=== PATIENT | female | born 1955 | race Hispanic/Latino ===

== ENCOUNTER → 2020-05-11 | Outpatient (CLI) | payer BC ==
[2020-05-11 10:09] LABS: BASOPHILS # (AUTO) 0.1 (0.0-0.1); BASOPHILS % 0.6 % (0.0-1.0); EOSINOPHILS # (AUTO) 0.6 (0.0-0.4); EOSINOPHILS % 7.4 % (0.0-6.0); HEMATOCRIT 40.8 % (34.2-44.1); HEMOGLOBIN 13.3 g/dL (12.0-16.0); LYMPHOCYTES # (AUTO) 2.3 (1.0-3.2); LYMPHOCYTES % 27.7 % (18.0-39.1); MEAN CORPUSCULAR HEMOGLOBIN 28.6 pg (28-32); MEAN CORPUSCULAR HGB CONC 32.6 g/dL (31-35); MEAN CORPUSCULAR VOLUME 87.7 fL (81-99); MONOCYTES # (AUTO) 0.6 (0.2-0.8); MONOCYTES % 6.9 % (4.4-11.3); NEUTROPHILS # (AUTO) 4.7 (2.1-6.9); PLATELET COUNT 141 x10e3/uL (140-360); RED BLOOD COUNT 4.65 x10e6/uL (3.6-5.1); RED CELL DISTRIBUTION WIDTH 13.2 % (11.7-14.4)
[2020-05-11 10:29] LABS: ALBUMIN 3.4 g/dL (3.5-5.0); ALBUMIN/GLOBULIN RATIO 0.9 (0.8-2.0); CALCIUM 9.2 mg/dL (8.4-10.2); CREATININE, SERUM 0.99 mg/dL (0.57-1.11)
== END ==
LOC: LAB 09:31
PROVIDERS: ATTEND Internal Medicine
DX: R07.9 Chest pain, unspecified (principal); R06.02 Shortness of breath; R53.83 Other fatigue
CPT/HCPCS: 36415; 80053; 85025; 85379

== ENCOUNTER → 2020-05-12 | Outpatient (CLI) | payer BC ==
[~2020-05-12] MED LIST: IOPAMIDOL 370 MG/ML 200 ML INFUS..BTL INJ ONE; SODIUM CHLORIDE 0.9% 100 ML ONE; SODIUM CHLORIDE 0.9% 250ML 250 ML ONE; SODIUM CHLORIDE 0.9% 500ML 500 ML ONE; SODIUM CHLORIDE 0.9% 50ML 0 ML ONE
== END ==
LOC: CT 10:47
PROVIDERS: ATTEND Internal Medicine
DX: R06.02 Shortness of breath (principal)
CPT/HCPCS: 71260; J7040; J7050 ×2; Q9967

== ENCOUNTER 2023-09-03 08:00 | Inpatient (IN) | payer BC, OTHER ==
[2023-09-02 12:53] LABS: BASOPHILS % 0.6 % (0.0-1.0); EOSINOPHILS # (AUTO) 0.3 (0.0-0.4); EOSINOPHILS % 4.1 % (0.0-6.0); HEMATOCRIT 41.4 % (34.2-44.1); LYMPHOCYTES # (AUTO) 1.6 (1.0-3.2); LYMPHOCYTES % 21.9 % (18.0-39.1); MEAN CORPUSCULAR HEMOGLOBIN 27.7 pg (28-32); MEAN CORPUSCULAR HGB CONC 31.4 g/dL (31-35); MEAN CORPUSCULAR VOLUME 88.1 fL (81-99); MONOCYTES # (AUTO) 0.6 (0.2-0.8); MONOCYTES % 8.7 % (4.4-11.3); NEUTROPHILS # (AUTO) 4.7 (2.1-6.9); NEUTROPHILS % 64.4 % (38.7-80.0); PLATELET COUNT 143 x10e3/uL (140-360); RED CELL DISTRIBUTION WIDTH 13.5 % (11.7-14.4); WHITE BLOOD COUNT 7.27 x10e3/uL (4.8-10.8)
[2023-09-02 13:29] LABS: ALBUMIN 3.7 g/dL (3.5-5.0); ALBUMIN/GLOBULIN RATIO 0.9 (0.8-2.0); ANION GAP 16.3 mmol/L (8-16); BILIRUBIN,TOTAL 0.6 mg/dL (0.2-1.2); CALCIUM 9.1 mg/dL (8.4-10.2); CREATININE, SERUM 0.88 mg/dL (0.57-1.11); POTASSIUM 4.3 mmol/L (3.5-5.1); TOTAL PROTEIN 7.6 g/dL (6.5-8.1)
[~2023-09-03] VITALS: Ht 149.9 cm; Wt 112.5 kg
[2023-09-03] VITALS (21 sets, daily range): BP systolic 121–151; BP diastolic 48–66; PULSE 95–111; RESP 8–18; TEMP 97.3–98.2; O2SAT 90–100
[~2023-09-03 08:00] MED LIST changes: +ALEVE220 M1 PO; +GLIMEPIRIDE2 MG PO; +HUMALOG100 UNIT/1 SC; -IOPAMIDOL 370 MG/ML 200 ML INFUS..BTL INJ ONE; +LISINOPRIL5 MG PO; +OZEMPIC0.25 MG/02 SC; -SODIUM CHLORIDE 0.9% 100 ML ONE; -SODIUM CHLORIDE 0.9% 250ML 250 ML ONE; -SODIUM CHLORIDE 0.9% 500ML 500 ML ONE; -SODIUM CHLORIDE 0.9% 50ML 0 ML ONE; +Sodium Chloride 0.9% 50ML Bag ONE; +TOLTERODINE TART2 MG PO; +TRELEGY ELLIPT1 EACH INH; +humalog SC
[2023-09-03] MEDS: LACTATED RINGER'S 1,000 ML ONE (08:47)
[2023-09-03] MEDS: CEFAZOLIN SODIUM 2 GM ONE (08:47)
[2023-09-03] MEDS ORDERED: MORPHINE SULFATE/PF 1 MG/1 ML 10ML VIAL ONE (11:28)
[2023-09-03] MEDS ORDERED: FENTANYL CITRATE/PF 100MCG/2 ML INJ ONE (11:44)
[2023-09-03] MEDS ORDERED: OXYMETAZOLINE HCL 0.05% NAS 1 SPRAY BTL ONE (12:44)
[2023-09-03] MEDS ORDERED: SUCCINYLCHOLINE CHLORIDE 20 MG/ML 10ML VIAL ONE (12:46)
[2023-09-03] MEDS ORDERED: DEXAMETHASONE SOD PHOS INJ 4 MG/ML SDV ONE (12:46)
[2023-09-03] MEDS ORDERED: PHENYLEPHRINE HCL 1% 10 MG/ML VIAL ONE (12:46)
[2023-09-03] MEDS ORDERED: PROPOFOL IV EMULSION 10 MG/ML 20 ML VIAL ONE (12:46)
[2023-09-03] MEDS ORDERED: SUGAMMADEX SODIUM 200 MG/2 ML VIAL IV ONE (12:46)
[2023-09-03] MEDS ORDERED: ONDANSETRON HCL INJ 2MG/ML 2ML 2 MG/ML VIAL ONE (12:46)
[2023-09-03] MEDS ORDERED: LIDOCAINE HCL 2% LOCAL INJ 5 ML SDV VIAL INJ ONE (12:46)
[2023-09-03] MEDS ORDERED: ROCURONIUM BROMIDE 10 MG/ML 5ML VIAL IV ONE (12:46)
[2023-09-03] MEDS ORDERED: HYDRALAZINE HCL 20 MG/ML VIAL ONE (12:46)
[2023-09-03] MEDS ORDERED: FAMOTIDINE 20 MG/2 ML VIAL IV ONE (12:46)
[2023-09-03] MEDS ORDERED: ALBUMIN 25% 12.5GM 0.25 GM/ML BTL IV ONE (12:46)
[2023-09-03] MEDS ORDERED: EPINEPHRINE HCL 1:1000 1ML 1 MG/ML AMP ONE (12:46)
[2023-09-03] MEDS ORDERED: EPHEDRINE SULFATE INJ 50 MG/ML VIAL ONE (12:46)
[2023-09-03] MEDS ORDERED: ALBUMIN 25% 12.5GM 50ML 100 ML IV ONE (14:16)
[2023-09-03] MEDS ORDERED: ACETAMINOPHEN 1000 MG/100 ML IV PRN (14:45)
[2023-09-03] MEDS ORDERED: NALOXONE HCL INJ 0.4 MG/ML AMP IV PRN (14:45)
[2023-09-03] MEDS: MORPHINE SULFATE 1 MG/ML 30ML PCA IV PRN (15:28)
[2023-09-03 15:47] LABS: BASOPHILS # (AUTO) 0.1 (0.0-0.1); BASOPHILS % 0.4 % (0.0-1.0); EOSINOPHILS # (AUTO) 0.1 (0.0-0.4); EOSINOPHILS % 0.6 % (0.0-6.0); HEMATOCRIT 36.1 % (34.2-44.1); HEMOGLOBIN 11.5 g/dL (12.0-16.0); LYMPHOCYTES # (AUTO) 2.1 (1.0-3.2); LYMPHOCYTES % 13.3 % (18.0-39.1); MEAN CORPUSCULAR HEMOGLOBIN 28.5 pg (28-32); MEAN CORPUSCULAR HGB CONC 31.9 g/dL (31-35); MEAN CORPUSCULAR VOLUME 89.4 fL (81-99); MONOCYTES # (AUTO) 0.5 (0.2-0.8); MONOCYTES % 2.8 % (4.4-11.3); NEUTROPHILS # (AUTO) 13.2 (2.1-6.9); NEUTROPHILS % 82.6 % (38.7-80.0); PLATELET COUNT 180 x10e3/uL (140-360); RED BLOOD COUNT 4.04 x10e6/uL (3.6-5.1); RED CELL DISTRIBUTION WIDTH 13.8 % (11.7-14.4); WHITE BLOOD COUNT 15.92 x10e3/uL (4.8-10.8)
[2023-09-03 15:58] LABS: ANION GAP 15.5 mmol/L (8-16); CALCIUM 7.7 mg/dL (8.4-10.2); CREATININE, SERUM 1.11 mg/dL (0.57-1.11); POTASSIUM 4.5 mmol/L (3.5-5.1)
[2023-09-03] MEDS ORDERED: DEXTROSE 50% SYRINGE 50 ML IV PRN (17:15)
[2023-09-03] MEDS: SODIUM CHLORIDE 0.9% 250ML IRRIG IR SCH (17:23)
[2023-09-03] MEDS: INSULIN LISPRO 100 UNIT/1 ML 3ML VIAL SQ SCH (17:37)
[2023-09-03] MEDS: MUPIROCIN 2% OINT 22 GM TUBE TOP SCH (17:37)
[2023-09-03] MEDS: SODIUM CHLORIDE 0.9% 1000ML 1,000 ML IV SCH (17:37)
[2023-09-04] VITALS (30 sets, daily range): BP systolic 92–150; BP diastolic 50–86; PULSE 87–101; RESP 10–18; TEMP 97–98; O2SAT 90–100
[2023-09-04 06:18] LABS: BASOPHILS % 0.1 % (0.0-1.0); HEMATOCRIT 32.3 % (34.2-44.1); HEMOGLOBIN 9.3 g/dL (12.0-16.0); LYMPHOCYTES # (AUTO) 0.4 (1.0-3.2); LYMPHOCYTES % 4.2 % (18.0-39.1); MEAN CORPUSCULAR HEMOGLOBIN 27.8 pg (28-32); MEAN CORPUSCULAR HGB CONC 28.8 g/dL (31-35); MEAN CORPUSCULAR VOLUME 96.4 fL (81-99); MONOCYTES # (AUTO) 0.8 (0.2-0.8); MONOCYTES % 8.7 % (4.4-11.3); NEUTROPHILS # (AUTO) 7.5 (2.1-6.9); NEUTROPHILS % 86.7 % (38.7-80.0); RED BLOOD COUNT 3.35 x10e6/uL (3.6-5.1); RED CELL DISTRIBUTION WIDTH 13.8 % (11.7-14.4); WHITE BLOOD COUNT 8.63 x10e3/uL (4.8-10.8)
[2023-09-04 06:38] LABS: PLATELET COUNT 91 x10e3/uL (140-360)
[2023-09-04] MEDS: ONDANSETRON HCL INJ 2MG/ML 2ML 2 MG/ML VIAL IV PRN (07:33)
[2023-09-04 07:45] LABS: ALBUMIN 3.3 g/dL (3.5-5.0); BILIRUBIN,TOTAL 0.3 mg/dL (0.2-1.2); CALCIUM 7.6 mg/dL (8.4-10.2); CREATININE, SERUM 2.14 mg/dL (0.57-1.11); TOTAL PROTEIN 6.6 g/dL (6.5-8.1)
[2023-09-04 08:59] LABS: ANION GAP 16.4 mmol/L (8-16); POTASSIUM 5.4 mmol/L (3.5-5.1)
[2023-09-04] MEDS: DIPHENHYDRAMINE HCL INJ 50 MG/ML VIAL IM PRN (10:48)
[2023-09-05] VITALS (27 sets, daily range): BP systolic 112–170; BP diastolic 43–75; PULSE 74–96; RESP 11–25; TEMP 98.6–99.8; O2SAT 88–99
[2023-09-05] MEDS: ACETAMINOPHEN 1000 MG/100 ML IV STA (03:12)
[2023-09-05] MEDS: ACETAMINOPHEN 1000 MG/100 ML 100 ML IV ONE (05:04)
[2023-09-05] MEDS: ACETAMINOPHEN 1000 MG/100 ML IV PRN (07:58)
[2023-09-05 08:35] LABS: BASOPHILS % 0.2 % (0.0-1.0); HEMATOCRIT 31.1 % (34.2-44.1); HEMOGLOBIN 9.8 g/dL (12.0-16.0); LYMPHOCYTES # (AUTO) 0.7 (1.0-3.2); LYMPHOCYTES % 7.5 % (18.0-39.1); MEAN CORPUSCULAR HEMOGLOBIN 28.7 pg (28-32); MEAN CORPUSCULAR HGB CONC 31.5 g/dL (31-35); MEAN CORPUSCULAR VOLUME 90.9 fL (81-99); MONOCYTES # (AUTO) 0.8 (0.2-0.8); MONOCYTES % 8.4 % (4.4-11.3); NEUTROPHILS # (AUTO) 7.5 (2.1-6.9); NEUTROPHILS % 83.3 % (38.7-80.0); PLATELET COUNT 76 x10e3/uL (140-360); RED BLOOD COUNT 3.42 x10e6/uL (3.6-5.1); RED CELL DISTRIBUTION WIDTH 14.6 % (11.7-14.4); WHITE BLOOD COUNT 9.04 x10e3/uL (4.8-10.8)
[2023-09-05 08:57] LABS: ALBUMIN 2.9 g/dL (3.5-5.0); ALBUMIN/GLOBULIN RATIO 0.9 (0.8-2.0); ANION GAP 14.9 mmol/L (8-16); BILIRUBIN,TOTAL 0.3 mg/dL (0.2-1.2); CALCIUM 7.5 mg/dL (8.4-10.2); CREATININE, SERUM 2.67 mg/dL (0.57-1.11); POTASSIUM 4.9 mmol/L (3.5-5.1)
[2023-09-05] MEDS: PROMETHAZINE 12.5MG/ NACL 0.9% 12.5 MG/50 ML BAG IV PRN (12:27)
[2023-09-05] MEDS: SODIUM BICARBONATE 8.4% VIAL 50 ML in SODIUM CHLORIDE 0.45% 1,000 ML IV SCH (12:27)
[2023-09-05] MEDS: HYDROMORPHONE 1MG/1ML INJ IV PRN (19:15)
[2023-09-05] MEDS: BISACODYL 10 MG SUPP PR ONE (21:08)
[2023-09-06] VITALS (17 sets, daily range): BP systolic 115–156; BP diastolic 52–90; PULSE 84–97; RESP 8–22; TEMP 97.5–98.2; O2SAT 93–100
[2023-09-06 06:38] LABS: BASOPHILS % 0.4 % (0.0-1.0); EOSINOPHILS # (AUTO) 0.1 (0.0-0.4); EOSINOPHILS % 1.4 % (0.0-6.0); HEMATOCRIT 31.4 % (34.2-44.1); HEMOGLOBIN 9.3 g/dL (12.0-16.0); LYMPHOCYTES # (AUTO) 0.8 (1.0-3.2); LYMPHOCYTES % 9.4 % (18.0-39.1); MEAN CORPUSCULAR HEMOGLOBIN 27.8 pg (28-32); MEAN CORPUSCULAR HGB CONC 29.6 g/dL (31-35); MEAN CORPUSCULAR VOLUME 93.7 fL (81-99); MONOCYTES # (AUTO) 0.6 (0.2-0.8); MONOCYTES % 7.1 % (4.4-11.3); NEUTROPHILS # (AUTO) 6.5 (2.1-6.9); NEUTROPHILS % 81.2 % (38.7-80.0); PLATELET COUNT 81 x10e3/uL (140-360); RED BLOOD COUNT 3.35 x10e6/uL (3.6-5.1); RED CELL DISTRIBUTION WIDTH 14.1 % (11.7-14.4); WHITE BLOOD COUNT 8.01 x10e3/uL (4.8-10.8)
[2023-09-06 06:59] LABS: ANION GAP 13.8 mmol/L (8-16); CALCIUM 7.8 mg/dL (8.4-10.2); CREATININE, SERUM 2.27 mg/dL (0.57-1.11); POTASSIUM 4.8 mmol/L (3.5-5.1)
[2023-09-06] MEDS: ACETAMINOPHEN 1000 MG/100 ML IV PRN (10:39)
[2023-09-06] MEDS: BISACODYL 10 MG SUPP PR PRN (13:46)
[2023-09-06] MEDS: SODIUM CHLORIDE 0.9% 1000ML 1,000 ML IV SCH (17:07)
[2023-09-07 07:05] LABS: CALCIUM 8.3 mg/dL (8.4-10.2); CREATININE, SERUM 1.92 mg/dL (0.57-1.11)
[2023-09-07 07:06] LABS: BASOPHILS % 0.4 % (0.0-1.0); EOSINOPHILS # (AUTO) 0.1 (0.0-0.4); EOSINOPHILS % 1.5 % (0.0-6.0); HEMATOCRIT 32.9 % (34.2-44.1); HEMOGLOBIN 9.8 g/dL (12.0-16.0); LYMPHOCYTES # (AUTO) 0.9 (1.0-3.2); LYMPHOCYTES % 12.2 % (18.0-39.1); MEAN CORPUSCULAR HEMOGLOBIN 28.4 pg (28-32); MEAN CORPUSCULAR HGB CONC 29.8 g/dL (31-35); MEAN CORPUSCULAR VOLUME 95.4 fL (81-99); MONOCYTES # (AUTO) 0.5 (0.2-0.8); MONOCYTES % 7.6 % (4.4-11.3); NEUTROPHILS # (AUTO) 5.6 (2.1-6.9); PLATELET COUNT 90 x10e3/uL (140-360); RED BLOOD COUNT 3.45 x10e6/uL (3.6-5.1); RED CELL DISTRIBUTION WIDTH 13.8 % (11.7-14.4); WHITE BLOOD COUNT 7.12 x10e3/uL (4.8-10.8)
[2023-09-07 08:43] VITALS: BP 148/67; PULSE 82; RESP 16; TEMP 98; O2SAT 98
[2023-09-07 08:58] VITALS: BP 148/67; PULSE 82; RESP 16; TEMP 98; O2SAT 98
[2023-09-07] MEDS: SENNA-S TABLET PO SCH (15:39)
[2023-09-07 16:30] VITALS: BP 162/72; PULSE 96; RESP 20; TEMP 98.1; O2SAT 97
[2023-09-07] MEDS: ACETAMINOPHEN/CODEINE 300MG - 30MG TAB PO PRN (16:42)
[2023-09-07] MEDS: CEFUROXIME AXETIL 250 MG TAB PO SCH (16:42)
[2023-09-07 20:00] VITALS: BP 158/76; PULSE 70; RESP 20; TEMP 98.1; O2SAT 97
[2023-09-07 21:00] VITALS: BP 158/76; PULSE 97; RESP 20; TEMP 98.7; O2SAT 97
[2023-09-08] VITALS (7 sets, daily range): BP systolic 125–165; BP diastolic 54–64; PULSE 64–70; RESP 15–18; TEMP 97.1–98.7; O2SAT 96–98
[2023-09-08 05:56] LABS: BASOPHILS % 0.6 % (0.0-1.0); EOSINOPHILS # (AUTO) 0.5 (0.0-0.4); EOSINOPHILS % 6.5 % (0.0-6.0); HEMATOCRIT 31.3 % (34.2-44.1); HEMOGLOBIN 9.8 g/dL (12.0-16.0); LYMPHOCYTES # (AUTO) 1.2 (1.0-3.2); LYMPHOCYTES % 17.9 % (18.0-39.1); MEAN CORPUSCULAR HEMOGLOBIN 28.6 pg (28-32); MEAN CORPUSCULAR HGB CONC 31.3 g/dL (31-35); MEAN CORPUSCULAR VOLUME 91.3 fL (81-99); MONOCYTES # (AUTO) 0.7 (0.2-0.8); MONOCYTES % 9.9 % (4.4-11.3); NEUTROPHILS # (AUTO) 4.5 (2.1-6.9); NEUTROPHILS % 64.8 % (38.7-80.0); PLATELET COUNT 79 x10e3/uL (140-360); RED BLOOD COUNT 3.43 x10e6/uL (3.6-5.1); RED CELL DISTRIBUTION WIDTH 13.7 % (11.7-14.4); WHITE BLOOD COUNT 6.88 x10e3/uL (4.8-10.8)
[2023-09-08 07:10] LABS: ALBUMIN 2.8 g/dL (3.5-5.0); ALBUMIN/GLOBULIN RATIO 0.8 (0.8-2.0); ALKALINE PHOSPHATASE 92 IU/L (40-150); ANION GAP 17.4 mmol/L (8-16); BILIRUBIN,TOTAL 0.7 mg/dL (0.2-1.2); BLOOD UREA NITROGEN 38 mg/dL (7-26); BUN/CREATININE RATIO 24 (6-25); CALCIUM 8.2 mg/dL (8.4-10.2); CARBON DIOXIDE 15 mmol/L (22-29); CHLORIDE 111 mmol/L (98-107); CREATININE, SERUM 1.58 mg/dL (0.57-1.11); EST GLOMERULAR FILTRATION RATE 35 ML/MIN (>=60); GLUCOSE 98 mg/dL (74-118); MAGNESIUM 1.8 MG/DL (1.3-2.1); POTASSIUM 4.4 mmol/L (3.5-5.1); SODIUM 139 mmol/L (136-145); TOTAL PROTEIN 6.1 g/dL (6.5-8.1)
[2023-09-08 07:43] LABS: ALANINE AMINOTRANSFERASE < 6 IU/L (0-55)
[2023-09-08 16:14] LABS: ANION GAP 13.4 mmol/L (8-16); CALCIUM 7.9 mg/dL (8.4-10.2); CREATININE, SERUM 1.63 mg/dL (0.57-1.11); POTASSIUM 4.4 mmol/L (3.5-5.1)
[2023-09-09] VITALS (10 sets, daily range): BP systolic 122–154; BP diastolic 53–84; PULSE 65–77; RESP 16–18; TEMP 97.3–98.5; O2SAT 97–100
[2023-09-09 05:32] LABS: BASOPHILS % 0.3 % (0.0-1.0); EOSINOPHILS # (AUTO) 0.6 (0.0-0.4); EOSINOPHILS % 8.1 % (0.0-6.0); HEMATOCRIT 32.4 % (34.2-44.1); HEMOGLOBIN 10.1 g/dL (12.0-16.0); LYMPHOCYTES # (AUTO) 1.4 (1.0-3.2); LYMPHOCYTES % 19.6 % (18.0-39.1); MEAN CORPUSCULAR HEMOGLOBIN 28.1 pg (28-32); MEAN CORPUSCULAR HGB CONC 31.2 g/dL (31-35); MONOCYTES # (AUTO) 0.7 (0.2-0.8); MONOCYTES % 9.8 % (4.4-11.3); NEUTROPHILS # (AUTO) 4.4 (2.1-6.9); NEUTROPHILS % 61.8 % (38.7-80.0); PLATELET COUNT 104 x10e3/uL (140-360); RED CELL DISTRIBUTION WIDTH 13.3 % (11.7-14.4); WHITE BLOOD COUNT 7.16 x10e3/uL (4.8-10.8)
[2023-09-09 06:09] LABS: ALBUMIN 2.6 g/dL (3.5-5.0); ALBUMIN/GLOBULIN RATIO 0.8 (0.8-2.0); ALKALINE PHOSPHATASE 93 IU/L (40-150); ANION GAP 13.4 mmol/L (8-16); BILIRUBIN,TOTAL 0.5 mg/dL (0.2-1.2); BLOOD UREA NITROGEN 33 mg/dL (7-26); BUN/CREATININE RATIO 21 (6-25); CALCIUM 8.4 mg/dL (8.4-10.2); CARBON DIOXIDE 19 mmol/L (22-29); CHLORIDE 111 mmol/L (98-107); CREATININE, SERUM 1.55 mg/dL (0.57-1.11); EST GLOMERULAR FILTRATION RATE 36 ML/MIN (>=60); GLUCOSE 146 mg/dL (74-118); POTASSIUM 4.4 mmol/L (3.5-5.1); SODIUM 139 mmol/L (136-145); TOTAL PROTEIN 5.7 g/dL (6.5-8.1)
[2023-09-09 06:40] LABS: ALANINE AMINOTRANSFERASE < 6 IU/L (0-55)
[2023-09-09] MEDS: ONDANSETRON HCL 4 MG ORAL DISINTEGRATING TAB PO PRN (17:51)
[2023-09-10] VITALS (12 sets, daily range): BP systolic 102–150; BP diastolic 64–97; PULSE 71–78; RESP 16–18; TEMP 97.5–98.7; O2SAT 93–99
[2023-09-10] MEDS: GABAPENTIN 100 MG CAP PO SCH (15:15)
[2023-09-11] VITALS: BP 148/86; PULSE 67; RESP 18; TEMP 98; O2SAT 100
[2023-09-11 04:00] VITALS: BP 136/68; PULSE 71; RESP 18; TEMP 98.5; O2SAT 97
[2023-09-11 05:38] LABS: BASOPHILS % 0.2 % (0.0-1.0); EOSINOPHILS # (AUTO) 0.6 (0.0-0.4); HEMATOCRIT 34.8 % (34.2-44.1); HEMOGLOBIN 10.7 g/dL (12.0-16.0); LYMPHOCYTES # (AUTO) 1.3 (1.0-3.2); LYMPHOCYTES % 15.4 % (18.0-39.1); MEAN CORPUSCULAR HEMOGLOBIN 27.9 pg (28-32); MEAN CORPUSCULAR HGB CONC 30.7 g/dL (31-35); MEAN CORPUSCULAR VOLUME 90.9 fL (81-99); MONOCYTES # (AUTO) 0.8 (0.2-0.8); MONOCYTES % 9.7 % (4.4-11.3); NEUTROPHILS # (AUTO) 5.8 (2.1-6.9); NEUTROPHILS % 66.5 % (38.7-80.0); PLATELET COUNT 120 x10e3/uL (140-360); RED BLOOD COUNT 3.83 x10e6/uL (3.6-5.1); RED CELL DISTRIBUTION WIDTH 13.6 % (11.7-14.4); WHITE BLOOD COUNT 8.69 x10e3/uL (4.8-10.8)
[2023-09-11 06:32] LABS: ALBUMIN 2.8 g/dL (3.5-5.0); ANION GAP 14.6 mmol/L (8-16); BILIRUBIN,TOTAL 0.5 mg/dL (0.2-1.2); CALCIUM 8.5 mg/dL (8.4-10.2); CREATININE, SERUM 1.5 mg/dL (0.57-1.11); POTASSIUM 4.6 mmol/L (3.5-5.1); TOTAL PROTEIN 5.6 g/dL (6.5-8.1)
[2023-09-11 08:00] VITALS: BP 149/77; PULSE 70; RESP 17; TEMP 98.2; O2SAT 96
[2023-09-11 08:38] VITALS: PULSE 80; RESP 18; O2SAT 94
[2023-09-11 08:50] VITALS: BP 149/77; PULSE 80; RESP 18; TEMP 98.2; O2SAT 94
[2023-09-11 12:17] VITALS: BP 130/57; PULSE 72; RESP 18; TEMP 99.4; O2SAT 99
== END 2023-09-11 15:30 | DRG 657 ==
LOC: OR 08:00 → PACU V 14:40 → ICU 16:04 → MED/SURG 09-06 15:20
PROVIDERS: ADMIT Internal Medicine; ATTEND Internal Medicine
PROC: 0TB60ZZ Excision of Right Ureter, Open Approach (ICD-10-PCS; 2023-09-03)
PROC: 0TT00ZZ Resection of Right Kidney, Open Approach (ICD-10-PCS; principal; 2023-09-03 11:31)
DX: C64.1 Malignant neoplasm of right kidney, except renal pelvis (principal); N17.9 Acute kidney failure, unspecified; Z68.43 Body mass index [BMI] 50.0-59.9, adult; N18.30 Chronic kidney disease, stage 3 unspecified; D69.6 Thrombocytopenia, unspecified; E11.22 Type 2 diabetes mellitus with diabetic chronic kidney disease; I12.9 Hypertensive chronic kidney disease with stage 1 through stage 4 chronic kidney disease, or unspecified chronic kidney disease; Z79.4 Long term (current) use of insulin; Z79.85 Long-term (current) use of injectable non-insulin antidiabetic drugs; Z79.84 Long term (current) use of oral hypoglycemic drugs; E87.5 Hyperkalemia; D64.9 Anemia, unspecified; R53.1 Weakness; E66.01 Morbid (severe) obesity due to excess calories; Z71.3 Dietary counseling and surveillance; G47.33 Obstructive sleep apnea (adult) (pediatric); D72.829 Elevated white blood cell count, unspecified; M54.30 Sciatica, unspecified side; K21.9 Gastro-esophageal reflux disease without esophagitis; M54.9 Dorsalgia, unspecified; G89.29 Other chronic pain; Z85.038 Personal history of other malignant neoplasm of large intestine; Z90.49 Acquired absence of other specified parts of digestive tract; Z79.899 Other long term (current) drug therapy
CPT/HCPCS: 36415; 71045; 71046; 74018; 80048; 80053; 82948; 83735; 85025; 86850; 86900; 86920; 88307; 88311; 93005; 94799; 99252; J0171; J0330; J0360; J0690; J1100; J1170; J1200; J2001; J2270; J2371; J2405; J2550; J7030; Q0162

== ENCOUNTER 2023-12-26 21:46 | Emergency (ER) | payer BC ==
[~2023-12-26 21:46] MED LIST changes: -Sodium Chloride 0.9% 50ML Bag ONE
== END 2023-12-27 03:00 | disposition left against medical advice (07) ==
LOC: ER 12-27 02:47
DX: R10.30 Lower abdominal pain, unspecified (principal)

== ENCOUNTER 2024-10-27 20:26 | Inpatient (IN) | payer BC, MEDICARE ==
[~2024-10-27] VITALS: Ht 149.9 cm; Wt 112.5 kg
[2024-10-27 20:50] VITALS: TEMP 98.4
[2024-10-27 21:00] LABS: BASOPHILS % 0.3 % (0.0-1.0); EOSINOPHILS % 2.0 % (0.0-6.0); LYMPHOCYTES % 14.0 % (18.0-39.1); MONOCYTES % 5.7 % (4.4-11.3); NEUTROPHILS % 77.7 % (38.7-80.0); RED CELL DISTRIBUTION WIDTH 13.4 % (11.7-14.4)
[2024-10-27] MEDS: SODIUM CHLORIDE 0.9% 1000ML 1,000 ML IV STA (21:04)
[2024-10-27] MEDS: Morphine 4mg INJECTION 4 MG/ML INJ IV STA (21:04)
[2024-10-27] MEDS: ONDANSETRON HCL INJ 2MG/ML 2ML 2 MG/ML VIAL IV STA (21:04)
[2024-10-27 21:31] LABS: EST GLOMERULAR FILTRATION RATE 28.0 ML/MIN (>=60)
[2024-10-27] MEDS: SODIUM BICARBONATE 8.4% INJ 50 ML SYR IV STA (21:58)
[2024-10-27] MEDS: CALCIUM GLUC 1 G/50 ML NACL 50 ML IV ONE (21:59)
[2024-10-27] MEDS: FUROSEMIDE INJ 10 MG/ML 10 ML VIAL IV ONE (22:00)
[2024-10-27] MEDS: INSULIN REGULAR, HUMAN 100 UNIT/1 ML IV ONE (22:01)
[2024-10-27] MEDS: DEXTROSE 50% SYRINGE 50 ML IV ONE (22:07)
[2024-10-27 22:29] VITALS: PULSE 84; RESP 18; O2SAT 96
[2024-10-27] MEDS: ALBUTEROL SULF 0.083% NEB SOLN 3 ML NEB NEB STA (22:29)
[2024-10-27] MEDS: SODIUM CHLORIDE 0.9% 1000ML 1,000 ML IV SCH (23:04)
[2024-10-27] MEDS ORDERED: SODIUM CHLORIDE 0.9% 1000ML 1,000 ML ONE (23:19)
[2024-10-27] MEDS: SODIUM CHLORIDE 0.9% 1000ML 1,000 ML IV ONE (23:31)
[2024-10-27 23:45] VITALS: PULSE 89; RESP 14
[2024-10-28] VITALS (28 sets, daily range): BP systolic 105–166; BP diastolic 55–85; PULSE 60–98; RESP 10–22; TEMP 98–98.4; O2SAT 82–100
[2024-10-28] MEDS: ONDANSETRON HCL INJ 2MG/ML 2ML 2 MG/ML VIAL IV PRN (01:51)
[2024-10-28] MEDS: Morphine 4mg INJECTION 4 MG/ML INJ IV PRN (01:51)
[2024-10-28 04:59] LABS: BASOPHILS % 0.2 % (0.0-1.0); EOSINOPHILS % 0.2 % (0.0-6.0); LYMPHOCYTES % 8.1 % (18.0-39.1); MONOCYTES % 6.6 % (4.4-11.3); NEUTROPHILS % 84.7 % (38.7-80.0); RED CELL DISTRIBUTION WIDTH 13.5 % (11.7-14.4)
[2024-10-28] MEDS: HYDROMORPHONE 1MG/1ML INJ IV PRN (07:44)
[2024-10-28 07:56] LABS: EST GLOMERULAR FILTRATION RATE 28.0 ML/MIN (>=60)
[2024-10-28] MEDS: LORAZEPAM INJ 2 MG/ML VIAL IV ONE (08:41)
[2024-10-28] MEDS: DEXTROSE 50% SYRINGE 50 ML IV ONE (08:47)
[2024-10-28] MEDS: INSULIN REGULAR, HUMAN 100 UNIT/1 ML IV ONE (08:49)
[2024-10-28] MEDS: CALCIUM GLUC 1 G/50 ML NACL 50 ML IV ONE (09:56)
[2024-10-28] MEDS: SODIUM BICARBONATE 8.4% VIAL 150 ML in DEXTROSE 5% 1,000 ML IV SCH (10:08)
[2024-10-28 10:35] LABS: ABG BASE EXCESS -12.0 mmol/L (-2 - 3); ABG HCO3 16 mmol/L (22-26); ABG PCO2 44 mmHg (35-45); ABG PH 7.18 (7.35-7.45); ABG PO2 95 mmHg (80-105); ABG TCO2 18
[2024-10-28 10:36] LABS: ABG OXYGEN SATURATION 95.0 % (95-98)
[2024-10-28] MEDS: LORAZEPAM INJ 2 MG/ML VIAL ONE (12:55)
[2024-10-28] MEDS: FUROSEMIDE INJ 10 MG/ML 2 ML VIAL IV ONE (17:21)
[2024-10-29] VITALS (19 sets, daily range): BP systolic 124–168; BP diastolic 50–90; PULSE 60–78; RESP 11–23; TEMP 97.8–98.6; O2SAT 93–100
[2024-10-29] MEDS ORDERED: HYDRALAZINE HCL 20 MG/ML VIAL IV PRN (05:00)
[2024-10-29 05:29] LABS: BASOPHILS % 0.4 % (0.0-1.0); EOSINOPHILS % 5.2 % (0.0-6.0); LYMPHOCYTES % 16.3 % (18.0-39.1); MONOCYTES % 8.7 % (4.4-11.3); NEUTROPHILS % 69.0 % (38.7-80.0); RED CELL DISTRIBUTION WIDTH 13.5 % (11.7-14.4)
[2024-10-29 06:05] LABS: EST GLOMERULAR FILTRATION RATE 27.0 ML/MIN (>=60)
[2024-10-30] VITALS (11 sets, daily range): BP systolic 136–164; BP diastolic 58–74; PULSE 62–85; RESP 12–20; TEMP 98.2–99.2; O2SAT 96–100
[2024-10-30 07:46] LABS: EST GLOMERULAR FILTRATION RATE 33.0 ML/MIN (>=60)
[2024-10-31] VITALS (10 sets, daily range): BP systolic 135–170; BP diastolic 61–77; PULSE 54–81; RESP 16–20; TEMP 97.4–99; O2SAT 95–100
[2024-10-31] MEDS: SODIUM BICARBONATE 650 MG TAB PO SCH (08:58)
[2024-11-01] VITALS (9 sets, daily range): BP systolic 121–160; BP diastolic 54–96; PULSE 59–75; RESP 17–20; TEMP 97.3–98.7; O2SAT 97–100
[2024-11-01 05:53] LABS: BASOPHILS % 0.5 % (0.0-1.0); EOSINOPHILS % 5.2 % (0.0-6.0); LYMPHOCYTES % 20.4 % (18.0-39.1); MONOCYTES % 7.6 % (4.4-11.3); NEUTROPHILS % 66.0 % (38.7-80.0); RED CELL DISTRIBUTION WIDTH 13.0 % (11.7-14.4)
[2024-11-01 06:16] LABS: EST GLOMERULAR FILTRATION RATE 31.0 ML/MIN (>=60)
[2024-11-01 07:47] LABS: % IRON SATURATION 25.0 % (15-50)
[2024-11-01] MEDS ORDERED: ONDANSETRON HCL 4 MG ORAL DISINTEGRATING TAB PO PRN (11:15)
[2024-11-01] MEDS: MAGNESIUM OXIDE 400 MG TAB PO ONE (11:17)
[2024-11-01] MEDS: AMLODIPINE BESYLATE 5 MG TAB PO ONE (11:17)
[2024-11-02] VITALS (11 sets, daily range): BP systolic 112–165; BP diastolic 60–98; PULSE 66–88; RESP 18–20; TEMP 97.5–98.3; O2SAT 96–100
[2024-11-02 06:33] LABS: BASOPHILS % 0.5 % (0.0-1.0); EOSINOPHILS % 5.2 % (0.0-6.0); LYMPHOCYTES % 21.3 % (18.0-39.1); MONOCYTES % 8.5 % (4.4-11.3); NEUTROPHILS % 64.3 % (38.7-80.0); RED CELL DISTRIBUTION WIDTH 13.2 % (11.7-14.4)
[2024-11-02 07:06] LABS: EST GLOMERULAR FILTRATION RATE 32.0 ML/MIN (>=60)
[2024-11-02] MEDS ORDERED: FENTANYL CITRATE/PF 100MCG/2 ML INJ ONE (08:09)
[2024-11-02] MEDS ORDERED: SUGAMMADEX SODIUM 200 MG/2 ML VIAL IV ONE (08:10)
[2024-11-02] MEDS ORDERED: FAMOTIDINE 20 MG/2 ML VIAL IV ONE (08:10)
[2024-11-02] MEDS ORDERED: PROPOFOL IV EMULSION 10 MG/ML 20 ML VIAL ONE (08:10)
[2024-11-02] MEDS ORDERED: SEVOFLURANE INHAL SOLN 250 ML PEN BTL ONE (08:10)
[2024-11-02] MEDS ORDERED: LIDOCAINE HCL 2% LOCAL INJ 5 ML SDV VIAL INJ ONE (08:10)
[2024-11-02] MEDS ORDERED: ACETAMINOPHEN 1000 MG/100 ML 100 ML IV ONE (08:10)
[2024-11-02] MEDS ORDERED: DEXAMETHASONE SOD PHOS INJ 4 MG/ML SDV ONE (08:10)
[2024-11-02] MEDS ORDERED: ROCURONIUM BROMIDE 1 ML IV ONE ×2 (08:10→11:02)
[2024-11-02] MEDS ORDERED: SUCCINYLCHOLINE CHLORIDE 20 MG/ML 10ML VIAL ONE (08:10)
[2024-11-02] MEDS ORDERED: ONDANSETRON HCL INJ 2MG/ML 2ML 2 MG/ML VIAL ONE (08:10)
[2024-11-02] MEDS: AMLODIPINE BESYLATE 5 MG TAB PO SCH (08:29)
[2024-11-02] MEDS ORDERED: PHENYLEPHRINE HCL 1% 10 MG/ML VIAL ONE (09:32)
[2024-11-02] MEDS ORDERED: SODIUM CHLORIDE 0.9% INJ 10 ML VIAL ONE (09:32)
[2024-11-02] MEDS ORDERED: EPHEDRINE SULFATE INJ 50 MG/ML VIAL ONE (09:56)
[2024-11-02] MEDS: PIPERACILLIN/TAZOBACTAM 3.375 GM VIAL ONE (11:35)
[2024-11-02] MEDS ORDERED: HYDROMORPHONE 2MG/ML ONE (12:08)
[2024-11-02] MEDS ORDERED: ROPIVACAINE/EPI/CLONIDINE/KET 50 ML SYRINGE INJ ONE (12:08)
[2024-11-02] MEDS ORDERED: ACETAMINOPHEN 1000 MG/100 ML IV PRN (12:45)
[2024-11-02] MEDS: SODIUM CHLORIDE 0.9% 250ML IRRIG IR SCH (12:45)
[2024-11-02] MEDS ORDERED: HYDROMORPHONE 1MG/1ML INJ IV PRN (12:45)
[2024-11-02] MEDS: SODIUM CHLORIDE 0.9% 1000ML 1,000 ML IV SCH (14:57)
[2024-11-03] VITALS (9 sets, daily range): BP systolic 135–149; BP diastolic 52–66; PULSE 67–86; RESP 17–19; TEMP 97.6–98.4; O2SAT 97–100
[2024-11-03 05:45] LABS: BASOPHILS % 0.3 % (0.0-1.0); EOSINOPHILS % 0.7 % (0.0-6.0); LYMPHOCYTES % 6.8 % (18.0-39.1); MONOCYTES % 8.0 % (4.4-11.3); NEUTROPHILS % 83.8 % (38.7-80.0); RED CELL DISTRIBUTION WIDTH 13.3 % (11.7-14.4)
[2024-11-03 07:36] LABS: EST GLOMERULAR FILTRATION RATE 16.0 ML/MIN (>=60)
[2024-11-03] MEDS: SODIUM CHLORIDE 0.9% IRRIG 1,000 ML BTL IR SCH (09:30)
[2024-11-03 17:34] LABS: EST GLOMERULAR FILTRATION RATE 15.0 ML/MIN (>=60)
[2024-11-03 18:56] LABS: ABG PCO2 29 mmHg (35-45); ABG PH 7.29 (7.35-7.45); ABG PO2 72 mmHg (80-105)
[2024-11-03 18:57] LABS: ABG BASE EXCESS -13.0 mmol/L (-2 - 3); ABG HCO3 14 mmol/L (22-26); ABG OXYGEN SATURATION 93.0 % (95-98); ABG TCO2 15
[2024-11-03] MEDS: SODIUM BICARBONATE 8.4% VIAL 50 ML in SODIUM CHLORIDE 0.45% 1,000 ML IV SCH (21:05)
[2024-11-03] MEDS: ACETAMINOPHEN 325 MG TAB PO PRN (21:06)
[2024-11-04] VITALS (7 sets, daily range): BP systolic 151–161; BP diastolic 63–88; PULSE 76–89; RESP 17–18; TEMP 97.3–98.9; O2SAT 96–100
[2024-11-04 04:51] LABS: BASOPHILS % 0.2 % (0.0-1.0); EOSINOPHILS % 4.6 % (0.0-6.0); LYMPHOCYTES % 9.7 % (18.0-39.1); MONOCYTES % 6.9 % (4.4-11.3); NEUTROPHILS % 78.0 % (38.7-80.0); RED CELL DISTRIBUTION WIDTH 13.5 % (11.7-14.4)
[2024-11-04 05:05] LABS: EST GLOMERULAR FILTRATION RATE 14.0 ML/MIN (>=60)
[2024-11-04] MEDS: SODIUM BICARBONATE 650 MG TAB PO SCH (11:31)
[2024-11-04] MEDS: SODIUM BICARBONATE 8.4% VIAL 50 ML in SODIUM CHLORIDE 0.45% 1,000 ML IV SCH (11:35)
[2024-11-04] MEDS ORDERED: SODIUM BICARBONATE 8.4% VIAL 50 ML in SODIUM CHLORIDE 0.45% 1,000 ML IV SCH (11:45)
[2024-11-05] VITALS (11 sets, daily range): BP systolic 120–164; BP diastolic 54–71; PULSE 58–84; RESP 16–18; TEMP 98–98.7; O2SAT 96–100
[2024-11-05 05:20] LABS: BASOPHILS % 0.2 % (0.0-1.0); EOSINOPHILS % 5.8 % (0.0-6.0); LYMPHOCYTES % 11.4 % (18.0-39.1); MONOCYTES % 7.9 % (4.4-11.3); NEUTROPHILS % 74.1 % (38.7-80.0); RED CELL DISTRIBUTION WIDTH 13.4 % (11.7-14.4)
[2024-11-05 05:52] LABS: EST GLOMERULAR FILTRATION RATE 15.0 ML/MIN (>=60)
[2024-11-05 07:00] LABS: ABG BASE EXCESS -13.0 mmol/L (-2 - 3); ABG HCO3 14 mmol/L (22-26); ABG OXYGEN SATURATION 93.0 % (95-98); ABG PCO2 29 mmHg (35-45); ABG PH 7.29 (7.35-7.45); ABG PO2 72 mmHg (80-105); ABG TCO2 15
[2024-11-05] MEDS: AMLODIPINE BESYLATE 5 MG TAB PO SCH (09:18)
[2024-11-06] VITALS (8 sets, daily range): BP systolic 123–165; BP diastolic 57–88; PULSE 68–88; RESP 15–20; TEMP 97.5–99; O2SAT 95–100
[2024-11-06 10:25] LABS: EST GLOMERULAR FILTRATION RATE 16.0 ML/MIN (>=60)
[2024-11-06] MEDS: LACTATED RINGER'S 1,000 ML INJ SCH (14:58)
[2024-11-07] VITALS (7 sets, daily range): BP systolic 123–160; BP diastolic 48–65; PULSE 62–80; RESP 16–20; TEMP 97.7–98.6; O2SAT 92–100
[2024-11-07 08:48] LABS: EST GLOMERULAR FILTRATION RATE 20.0 ML/MIN (>=60)
[2024-11-07] MEDS: SODIUM BICARBONATE 8.4% VIAL 50 ML in SODIUM CHLORIDE 0.45% 1,000 ML IV SCH (11:55)
[2024-11-07] MEDS: POTASSIUM CHLORIDE 20 MEQ TAB CR PO ONE (11:56)
[2024-11-07] MEDS: CALCIUM CARBONATE 500 MG CHEWABLE TABS PO SCH (13:28)
[2024-11-07] MEDS: SODIUM BICARBONATE 650 MG TAB PO SCH (16:50)
[2024-11-08] VITALS (9 sets, daily range): BP systolic 123–154; BP diastolic 53–75; PULSE 73–90; RESP 16–20; TEMP 98.1–98.6; O2SAT 97–100
[2024-11-08 06:12] LABS: ABG BASE EXCESS -12.0 mmol/L (-2 - 3); ABG HCO3 16.0 mmol/L (22-26); ABG OXYGEN SATURATION 95.0 % (95-98); ABG PCO2 44.0 mmHg (35-45); ABG PH 7.18 (7.35-7.45); ABG PO2 95.0 mmHg (80-105); ABG TCO2 18.0
[2024-11-08 06:12] LABS: ABG BASE EXCESS -7.0 mmol/L (-2 - 3); ABG HCO3 20.0 mmol/L (22-26); ABG OXYGEN SATURATION 75.0 % (95-98); ABG PCO2 41.0 mmHg (35-45); ABG PH 7.29 (7.35-7.45); ABG PO2 45.0 mmHg (80-105); ABG TCO2 21.0
[2024-11-08 06:34] LABS: BASOPHILS % 0.2 % (0.0-1.0); EOSINOPHILS % 8.3 % (0.0-6.0); LYMPHOCYTES % 13.3 % (18.0-39.1); MONOCYTES % 10.5 % (4.4-11.3); NEUTROPHILS % 67.1 % (38.7-80.0); RED CELL DISTRIBUTION WIDTH 13.4 % (11.7-14.4)
[2024-11-08 06:56] LABS: EST GLOMERULAR FILTRATION RATE 15.0 ML/MIN (>=60)
[2024-11-09] VITALS (8 sets, daily range): BP systolic 104–147; BP diastolic 52–73; PULSE 69–77; RESP 16–21; TEMP 97–98.5; O2SAT 98–100
[2024-11-09] MEDS: ENOXAPARIN INJ 80 MG/0.8 ML SYR SC ONE ×2 (02:04→04:52)
[2024-11-09 06:03] LABS: EST GLOMERULAR FILTRATION RATE 16.0 ML/MIN (>=60)
[2024-11-09 06:24] LABS: BASOPHILS % 0.2 % (0.0-1.0); EOSINOPHILS % 7.5 % (0.0-6.0); LYMPHOCYTES % 14.8 % (18.0-39.1); MONOCYTES % 10.8 % (4.4-11.3); NEUTROPHILS % 65.8 % (38.7-80.0); RED CELL DISTRIBUTION WIDTH 13.4 % (11.7-14.4)
[2024-11-09] MEDS: ENOXAPARIN INJ 80 MG/0.8 ML SYR SC SCH (08:59)
[2024-11-09] MEDS: ONDANSETRON HCL INJ 2MG/ML 2ML 2 MG/ML VIAL IV PRN (22:29)
[2024-11-10] VITALS (11 sets, daily range): BP systolic 138–162; BP diastolic 60–77; PULSE 68–85; RESP 16–20; TEMP 97.4–98.8; O2SAT 95–99
[2024-11-10 07:49] LABS: BASOPHILS % 0.3 % (0.0-1.0); EOSINOPHILS % 6.3 % (0.0-6.0); LYMPHOCYTES % 16.0 % (18.0-39.1); MONOCYTES % 9.4 % (4.4-11.3); NEUTROPHILS % 67.4 % (38.7-80.0); RED CELL DISTRIBUTION WIDTH 13.4 % (11.7-14.4)
[2024-11-10 08:13] LABS: EST GLOMERULAR FILTRATION RATE 16.0 ML/MIN (>=60)
[2024-11-10 15:39] LABS: LEUKOCYTE ESTERASE ,URINE NEGATIVE (NEGATIVE); PROTEIN,URINE DIPSTICK >=300 (NEGATIVE); URINE UROBILINOGEN 0.2 mg/dL (0.2 - 1)
[2024-11-10 15:50] LABS: EPITHELIAL CELLS,URINE RARE /LPF; WBC,URINE (MAN) 0-5 /HPF (0-5)
[2024-11-10] MEDS: LACTATED RINGER'S 1,000 ML INJ SCH (18:35)
[2024-11-11 02:52] VITALS: BP 155/79; PULSE 81; RESP 18; TEMP 97.6; O2SAT 98
[2024-11-11 05:53] LABS: EST GLOMERULAR FILTRATION RATE 14.0 ML/MIN (>=60)
[2024-11-11 06:42] VITALS: PULSE 73
[2024-11-11 08:59] VITALS: BP 159/72; PULSE 79; RESP 18; TEMP 98.5; O2SAT 98
[2024-11-11 09:04] VITALS: BP 159/72; PULSE 79; RESP 18; TEMP 98.5; O2SAT 98
[2024-11-11 12:13] VITALS: BP 135/56; PULSE 78; RESP 20; TEMP 98; O2SAT 96
== END 2024-11-11 12:20 | disposition home or self-care (01) | DRG 336 ==
LOC: ER 20:29 → ERHOLD 22:47 → ICU 23:59 → MED/SURG 10-29 12:55
PROVIDERS: ADMIT Internal Medicine; ATTEND Internal Medicine
PROC: 4A133R1 Monitoring of Arterial Saturation, Peripheral, Percutaneous Approach (ICD-10-PCS; 2024-10-28)
PROC: 02HV33Z Insertion of Infusion Device into Superior Vena Cava, Percutaneous Approach (ICD-10-PCS; 2024-10-29)
PROC: 0WQF0ZZ Repair Abdominal Wall, Open Approach (ICD-10-PCS; 2024-11-02)
PROC: 0WUF0JZ Supplement Abdominal Wall with Synthetic Substitute, Open Approach (ICD-10-PCS; 2024-11-02)
PROC: 0DN80ZZ Release Small Intestine, Open Approach (ICD-10-PCS; principal; 2024-11-02 09:13)
DX: K43.6 Other and unspecified ventral hernia with obstruction, without gangrene (principal); E87.20 Acidosis, unspecified; I82.622 Acute embolism and thrombosis of deep veins of left upper extremity; K56.50 Intestinal adhesions [bands], unspecified as to partial versus complete obstruction; N17.9 Acute kidney failure, unspecified; Z68.43 Body mass index [BMI] 50.0-59.9, adult; N18.4 Chronic kidney disease, stage 4 (severe); E66.01 Morbid (severe) obesity due to excess calories; E11.22 Type 2 diabetes mellitus with diabetic chronic kidney disease; I12.9 Hypertensive chronic kidney disease with stage 1 through stage 4 chronic kidney disease, or unspecified chronic kidney disease; D69.6 Thrombocytopenia, unspecified; E83.51 Hypocalcemia; E87.5 Hyperkalemia; E87.6 Hypokalemia; K21.9 Gastro-esophageal reflux disease without esophagitis; Z79.4 Long term (current) use of insulin; Z79.84 Long term (current) use of oral hypoglycemic drugs; Z79.51 Long term (current) use of inhaled steroids; Z85.528 Personal history of other malignant neoplasm of kidney; Z90.5 Acquired absence of kidney; Z90.49 Acquired absence of other specified parts of digestive tract; Z90.710 Acquired absence of both cervix and uterus; Z88.1 Allergy status to other antibiotic agents
CPT/HCPCS: 36415; 36569; 36600; 71045; 74176; 76770; 80048; 80053; 81001; 82550; 82728; 82805; 82948; 83540; 83690; 83735; 84132; 84466; 84484; 85025; 88302; 93005; 93971; 94640; 94799; 99252; 99284; C1781; J0330; J1100; J1171; J1308; J1650; J1938; J1940; J2003; J2060; J2270; J2371; J2405; J2470; J2543; J7030; J7070; J7799

== ENCOUNTER 2024-11-25 14:33 | Inpatient (IN) | payer MEDICARE ==
[~2024-11-25] VITALS: Ht 149.9 cm; Wt 109.8 kg
[2024-11-25] VITALS (7 sets, daily range): BP systolic 124–146; BP diastolic 58–100; PULSE 96–101; RESP 14–24; TEMP 98.4–101; O2SAT 91–100
[2024-11-25 15:59] LABS: BASOPHILS % 0.3 % (0.0-1.0); EOSINOPHILS % 0.1 % (0.0-6.0); LYMPHOCYTES % 3.0 % (18.0-39.1); MONOCYTES % 8.6 % (4.4-11.3); NEUTROPHILS % 87.6 % (38.7-80.0); RED CELL DISTRIBUTION WIDTH 13.5 % (11.7-14.4)
[2024-11-25] MEDS: SODIUM CHLORIDE 0.9% 1000ML 1,000 ML IV STA (16:06)
[2024-11-25] MEDS: ACETAMINOPHEN 1000 MG/100 ML IV ONE (16:07)
[2024-11-25 16:25] LABS: EST GLOMERULAR FILTRATION RATE 23.0 ML/MIN (>=60)
[2024-11-25 16:28] LABS: INR 1.28
[2024-11-25] MEDS: ONDANSETRON HCL INJ 2MG/ML 2ML 2 MG/ML VIAL IV STA (16:29)
[2024-11-25 18:01] LABS: CORONAVIRUS COVID-19 AG NEGATIVE (NEGATIVE)
[2024-11-25 18:13] LABS: ABG BASE EXCESS -13.0 mmol/L (-2 - 3); ABG HCO3 13 mmol/L (22-26); ABG PCO2 26 mmHg (35-45); ABG PH 7.32 (7.35-7.45); ABG PO2 81 mmHg (80-105); ABG TCO2 14
[2024-11-25 18:14] LABS: ABG OXYGEN SATURATION 95.0 % (95-98)
[2024-11-25] MEDS: ALBUTEROL SULF 0.083% NEB SOLN 3 ML NEB NEB STA (18:16)
[2024-11-25] MEDS: SODIUM BICARBONATE 8.4% INJ 50 ML SYR IV STA (18:30)
[2024-11-25] MEDS: FUROSEMIDE INJ 10 MG/ML 4 ML VIAL IV ONE (18:30)
[2024-11-25] MEDS: MAGNESIUM SULFATE 2GM/50ML IV ONE (18:32)
[2024-11-25] MEDS: INSULIN REGULAR, HUMAN 100 UNIT/1 ML IV ONE (18:36)
[2024-11-25] MEDS: CALCIUM GLUC 1 G/50 ML NACL 50 ML IV ONE (18:37)
[2024-11-25] MEDS: DEXTROSE 50% SYRINGE 50 ML IV ONE (18:59)
[2024-11-25] MEDS: SODIUM BICARBONATE 8.4% VIAL 50 ML in SODIUM CHLORIDE 0.45% 1,000 ML IV SCH (19:00)
[2024-11-25 19:41] LABS: LEUKOCYTE ESTERASE ,URINE NEGATIVE (NEGATIVE); PROTEIN,URINE DIPSTICK >=300 (NEGATIVE); URINE UROBILINOGEN 0.2 mg/dL (0.2 - 1)
[2024-11-25 20:01] LABS: WBC,URINE (MAN) 0-5 /HPF (0-5)
[2024-11-25 20:02] LABS: EPITHELIAL CELLS,URINE MODERATE /LPF
[2024-11-25] MEDS: Vancomycin IV 1 GM in SODIUM CHLORIDE 0.9% 250ML 250 ML IV ONE (20:24)
[2024-11-25] MEDS: INSULIN LISPRO 100 UNIT/1 ML 3ML VIAL SQ SCH (22:09)
[2024-11-25] MEDS: ONDANSETRON HCL INJ 2MG/ML 2ML 2 MG/ML VIAL IV PRN (22:37)
[2024-11-25] MEDS: HYDROMORPHONE 1MG/1ML INJ IV PRN (22:38)
[2024-11-26] VITALS (33 sets, daily range): BP systolic 123–188; BP diastolic 59–105; PULSE 84–100; RESP 10–21; TEMP 98.2–99.2; O2SAT 94–100
[2024-11-26 04:46] LABS: BASOPHILS % 0.2 % (0.0-1.0); EOSINOPHILS % 0.1 % (0.0-6.0); LYMPHOCYTES % 4.7 % (18.0-39.1); MONOCYTES % 10.3 % (4.4-11.3); NEUTROPHILS % 84.4 % (38.7-80.0); RED CELL DISTRIBUTION WIDTH 13.5 % (11.7-14.4)
[2024-11-26 05:00] LABS: EST GLOMERULAR FILTRATION RATE 18.0 ML/MIN (>=60)
[2024-11-26] MEDS: GLIMEPIRIDE 2 MG TAB PO SCH (08:18)
[2024-11-26] MEDS: TOLTERODINE TARTRATE 2 MG TAB PO SCH (08:18)
[2024-11-26] MEDS: FUROSEMIDE INJ 10 MG/ML 4 ML VIAL IV ONE (17:36)
[2024-11-26] MEDS: DEXTROSE 50% SYRINGE 50 ML IV PRN (21:18)
[2024-11-27] VITALS (17 sets, daily range): BP systolic 118–173; BP diastolic 58–136; PULSE 85–97; RESP 13–26; TEMP 97.5–98.5; O2SAT 91–100
[2024-11-27 08:56] LABS: BASOPHILS % 0.2 % (0.0-1.0); EOSINOPHILS % 1.2 % (0.0-6.0); LYMPHOCYTES % 5.7 % (18.0-39.1); MONOCYTES % 9.1 % (4.4-11.3); NEUTROPHILS % 83.6 % (38.7-80.0); RED CELL DISTRIBUTION WIDTH 13.7 % (11.7-14.4)
[2024-11-27 09:18] LABS: EST GLOMERULAR FILTRATION RATE 14.0 ML/MIN (>=60)
[2024-11-27 12:54] LABS: BAND NEUTROPHILS % (MANUAL) 1 %; LYMPHOCYTES % (MANUAL) 3 % (19-48); MONOCYTES % (MANUAL) 3 % (3.4-9.0); NEUTROPHILS % (MANUAL) 93 % (40-74); PLATELET ESTIMATE ADEQUATE; PLATELET MORPHOLOGY COMMENT NORMAL; RBC MORPHOLOGY COMMENT NORMAL
[2024-11-27] MEDS: LOPERAMIDE HCL 2 MG CAP PO ONE (18:23)
[2024-11-28] VITALS (18 sets, daily range): BP systolic 81–170; BP diastolic 47–107; PULSE 70–89; RESP 11–29; TEMP 97.9–98.6; O2SAT 93–100
[2024-11-28] MEDS: DEXTROSE 5% 1,000 ML IV SCH (05:21)
[2024-11-28 07:00] LABS: BASOPHILS % 0.4 % (0.0-1.0); EOSINOPHILS % 5.6 % (0.0-6.0); LYMPHOCYTES % 9.9 % (18.0-39.1); MONOCYTES % 10.6 % (4.4-11.3); NEUTROPHILS % 73.1 % (38.7-80.0); RED CELL DISTRIBUTION WIDTH 13.6 % (11.7-14.4)
[2024-11-28 07:16] LABS: EST GLOMERULAR FILTRATION RATE 13.0 ML/MIN (>=60)
[2024-11-28] MEDS ORDERED: SODIUM BICARBONATE 8.4% VIAL 50 ML in DEXTROSE 5%/0.45% SOD CHL 1,000 ML IV SCH (10:15)
[2024-11-28] MEDS ORDERED: ACETAMINOPHEN 325 MG TAB PO PRN (11:00)
[2024-11-28] MEDS ORDERED: HYDROCODONE/APAP 5MG-325MG TAB PO PRN (11:00)
[2024-11-28 11:30] LABS: % IRON SATURATION 9.0 % (15-50)
[2024-11-28] MEDS: METHOCARBAMOL 750 MG TAB PO PRN (11:30)
[2024-11-28] MEDS: LIDOCAINE 4% PATCH TP SCH (11:39)
[2024-11-28] MEDS: ACETAMINOPHEN 325 MG TAB PO PRN (11:44)
[2024-11-28 11:56] LABS: BAND NEUTROPHILS % (MANUAL) 12 %; EOSINOPHILS % (MANUAL) 5 % (0-7); LYMPHOCYTES % (MANUAL) 10 % (19-48); MONOCYTES % (MANUAL) 5 % (3.4-9.0); NEUTROPHILS % (MANUAL) 68 % (40-74)
[2024-11-28 11:57] LABS: PLATELET ESTIMATE SLIGHTLY DECREASED; PLATELET MORPHOLOGY COMMENT NORMAL
[2024-11-28] MEDS: IRON SUCROSE 100 MG in SODIUM CHLORIDE 0.9% 100 ML IV SCH (15:43)
[2024-11-28] MEDS: DEXTROSE 5%/LACTATED RINGERS 1,000 ML IV SCH (15:43)
[2024-11-28] MEDS: SODIUM BICARBONATE 650 MG TAB PO SCH (16:45)
[2024-11-29] VITALS (18 sets, daily range): BP systolic 111–182; BP diastolic 55–116; PULSE 62–90; RESP 17–24; TEMP 98.2–98.5; O2SAT 95–100
[2024-11-29] MEDS: ENOXAPARIN SOD INJ 120 MG/0.8 ML SYR SC SCH (07:12)
[2024-11-29] MEDS: AMLODIPINE BESYLATE 5 MG TAB PO ONE (08:31)
[2024-11-29 08:45] LABS: BASOPHILS % 0.4 % (0.0-1.0); EOSINOPHILS % 10.3 % (0.0-6.0); LYMPHOCYTES % 13.7 % (18.0-39.1); MONOCYTES % 9.4 % (4.4-11.3); NEUTROPHILS % 66.0 % (38.7-80.0); RED CELL DISTRIBUTION WIDTH 13.4 % (11.7-14.4)
[2024-11-29] MEDS ORDERED: ENOXAPARIN INJ 80 MG/0.8 ML SYR SC SCH (09:00)
[2024-11-29 09:21] LABS: EST GLOMERULAR FILTRATION RATE 14.0 ML/MIN (>=60)
[2024-11-29 17:25] LABS: EST GLOMERULAR FILTRATION RATE 15.0 ML/MIN (>=60)
[2024-11-30] VITALS (15 sets, daily range): BP systolic 113–154; BP diastolic 51–63; PULSE 58–74; RESP 8–26; TEMP 98.1–98.3; O2SAT 95–100
[2024-11-30] MEDS: MAGNESIUM SULFATE 2GM/50ML 50 ML IV ONE (05:17)
[2024-11-30 06:02] LABS: ABG BASE EXCESS -13.0 mmol/L (-2 - 3); ABG HCO3 13 mmol/L (22-26); ABG OXYGEN SATURATION 95.0 % (95-98); ABG PCO2 26 mmHg (35-45); ABG PH 7.32 (7.35-7.45); ABG PO2 81 mmHg (80-105); ABG TCO2 14
[2024-11-30 06:48] LABS: BASOPHILS % 0.3 % (0.0-1.0); EOSINOPHILS % 11.1 % (0.0-6.0); LYMPHOCYTES % 16.9 % (18.0-39.1); MONOCYTES % 12.2 % (4.4-11.3); NEUTROPHILS % 58.5 % (38.7-80.0); RED CELL DISTRIBUTION WIDTH 13.5 % (11.7-14.4)
[2024-11-30 07:14] LABS: EST GLOMERULAR FILTRATION RATE 17.0 ML/MIN (>=60)
[2024-11-30] MEDS: AMLODIPINE BESYLATE 5 MG TAB PO SCH (08:07)
[2024-11-30] MEDS: DEXTROSE 5%/LACTATED RINGERS 1,000 ML IV SCH (16:57)
[2024-12-01] VITALS (13 sets, daily range): BP systolic 133–167; BP diastolic 56–143; PULSE 65–80; RESP 12–23; TEMP 97.8–98.2; O2SAT 93–100
[2024-12-01 05:29] LABS: BASOPHILS % 0.7 % (0.0-1.0); EOSINOPHILS % 9.2 % (0.0-6.0); LYMPHOCYTES % 17.1 % (18.0-39.1); MONOCYTES % 12.7 % (4.4-11.3); NEUTROPHILS % 58.4 % (38.7-80.0); RED CELL DISTRIBUTION WIDTH 13.5 % (11.7-14.4)
[2024-12-01 06:12] LABS: EST GLOMERULAR FILTRATION RATE 20.0 ML/MIN (>=60)
[2024-12-02] VITALS (8 sets, daily range): BP systolic 141–180; BP diastolic 60–80; PULSE 65–77; RESP 13–20; TEMP 98–99; O2SAT 94–100
[2024-12-02 08:06] LABS: BASOPHILS % 0.3 % (0.0-1.0); EOSINOPHILS % 7.9 % (0.0-6.0); LYMPHOCYTES % 18.4 % (18.0-39.1); MONOCYTES % 11.5 % (4.4-11.3); NEUTROPHILS % 58.6 % (38.7-80.0); RED CELL DISTRIBUTION WIDTH 13.5 % (11.7-14.4)
[2024-12-02 08:37] LABS: EST GLOMERULAR FILTRATION RATE 24.0 ML/MIN (>=60)
[2024-12-03] VITALS: BP 187/80; PULSE 71; RESP 20; TEMP 98; O2SAT 99
[2024-12-03 04:00] VITALS: BP 175/78; PULSE 73; RESP 20; TEMP 97.7; O2SAT 98
[2024-12-03 07:54] VITALS: BP 157/85; PULSE 68; RESP 19; TEMP 98; O2SAT 100
[2024-12-03 08:48] VITALS: BP 157/85; PULSE 68; RESP 19; TEMP 98; O2SAT 100
[2024-12-03] MEDS ORDERED: NORVASC10 MG PO (09:01)
[2024-12-03] MEDS ORDERED: AUGMENTIN PO (09:01)
== END 2024-12-03 10:45 | disposition home or self-care (01) | DRG 862 ==
LOC: ER 14:45 → ERHOLD 18:42 → ICU 20:09 → MED/SURG2 12-02 02:19
PROVIDERS: ADMIT Internal Medicine; ATTEND Internal Medicine
PROC: 4A033B1 Measurement of Arterial Pressure, Peripheral, Percutaneous Approach (ICD-10-PCS; principal; 2024-11-25)
PROC: 05HY33Z Insertion of Infusion Device into Upper Vein, Percutaneous Approach (ICD-10-PCS; 2024-11-27)
PROC: 3E03329 Introduction of Other Anti-infective into Peripheral Vein, Percutaneous Approach (ICD-10-PCS; 2024-11-27)
DX: T81.41XA Infection following a procedure, superficial incisional surgical site, initial encounter (principal); A41.9 Sepsis, unspecified organism; L03.311 Cellulitis of abdominal wall; Z68.42 Body mass index [BMI] 45.0-49.9, adult; N18.4 Chronic kidney disease, stage 4 (severe); N17.9 Acute kidney failure, unspecified; E87.20 Acidosis, unspecified; L76.34 Postprocedural seroma of skin and subcutaneous tissue following other procedure; I82.622 Acute embolism and thrombosis of deep veins of left upper extremity; E11.22 Type 2 diabetes mellitus with diabetic chronic kidney disease; I12.9 Hypertensive chronic kidney disease with stage 1 through stage 4 chronic kidney disease, or unspecified chronic kidney disease; K21.9 Gastro-esophageal reflux disease without esophagitis; E78.5 Hyperlipidemia, unspecified; E87.5 Hyperkalemia; M54.30 Sciatica, unspecified side; M19.90 Unspecified osteoarthritis, unspecified site; R32 Unspecified urinary incontinence; D63.1 Anemia in chronic kidney disease; R11.0 Nausea; E66.813 Obesity, class 3; M25.552 Pain in left hip; Z79.4 Long term (current) use of insulin; Z79.84 Long term (current) use of oral hypoglycemic drugs; Z85.038 Personal history of other malignant neoplasm of large intestine; Z90.49 Acquired absence of other specified parts of digestive tract; Z90.5 Acquired absence of kidney; Z11.52 Encounter for screening for COVID-19; Z88.1 Allergy status to other antibiotic agents; Z87.440 Personal history of urinary (tract) infections; Z85.528 Personal history of other malignant neoplasm of kidney
CPT/HCPCS: 36415; 36568; 36600; 71045; 80048; 80053; 81001; 82728; 82805; 82947; 82948; 83540; 83605; 83735; 83880; 84466; 85025; 85610; 85730; 87040; 87086; 93005; 94760; 94799; 96372; 99285; J1171; J1650; J1756; J1938; J2405; J2470; J2543; J3475; J7030; J7050; J7070; J7799

== ENCOUNTER 2024-12-13 15:31 | Inpatient (IN) | payer MEDICARE ==
[~2024-12-13] VITALS: Ht 149.9 cm; Wt 109.8 kg
[~2024-12-13 15:31] MED LIST changes: +AUGMENTIN PO; +NORVASC10 MG PO
[2024-12-13 16:44] LABS: BASOPHILS % 0.4 % (0.0-1.0); EOSINOPHILS % 2.4 % (0.0-6.0); LYMPHOCYTES % 24.9 % (18.0-39.1); MONOCYTES % 15.6 % (4.4-11.3); NEUTROPHILS % 56.4 % (38.7-80.0); RED CELL DISTRIBUTION WIDTH 14.4 % (11.7-14.4)
[2024-12-13 16:52] LABS: INR 1.27
[2024-12-13 16:56] LABS: EST GLOMERULAR FILTRATION RATE 22.0 ML/MIN (>=60)
[2024-12-13] MEDS ORDERED: FUROSEMIDE INJ 10 MG/ML 2 ML VIAL IV ONE (17:15)
[2024-12-13] MEDS: ONDANSETRON HCL INJ 2MG/ML 2ML 2 MG/ML VIAL IV STA (17:39)
[2024-12-13] MEDS: Morphine 4mg INJECTION 4 MG/ML INJ IV STA (17:40)
[2024-12-13] MEDS: SODIUM CHLORIDE 0.9% 500ML 500 ML IV ONE (17:40)
[2024-12-13] MEDS ORDERED: ONDANSETRON HCL INJ 2MG/ML 2ML 2 MG/ML VIAL IV PRN (18:45)
[2024-12-13 19:15] VITALS: PULSE 91; RESP 20; TEMP 99.9
[2024-12-13] MEDS ORDERED: DEXTROSE 50% SYRINGE 50 ML IV PRN (19:15)
[2024-12-13 19:55] LABS: ABG PH 7.34 (7.35-7.45)
[2024-12-13 19:56] LABS: ABG BASE EXCESS -10.0 mmol/L (-2 - 3); ABG HCO3 16 mmol/L (22-26); ABG OXYGEN SATURATION 92.0 % (95-98); ABG PCO2 29 mmHg (35-45); ABG PO2 65 mmHg (80-105); ABG TCO2 16
[2024-12-13] MEDS: INSULIN REGULAR, HUMAN 100 UNIT/1 ML SQ SCH (21:00)
[2024-12-13] MEDS ORDERED: TEMAZEPAM 7.5 MG CAP PO PRN (21:00)
[2024-12-13] MEDS: SODIUM CHLORIDE 0.9% 1000ML 1,000 ML IV ONE (21:10)
[2024-12-13] MEDS: SODIUM CHLORIDE 0.9% 1000ML 1,000 ML ONE (21:20)
[2024-12-13 21:24] VITALS: BP_SYST 150; BP_SYST 151; BP_DIAS 66; BP_DIAS 68; PULSE 93; RESP 20; TEMP 100; O2SAT 99
[2024-12-13 21:50] VITALS: BP 151/66; PULSE 93; RESP 20; TEMP 100; O2SAT 99
[2024-12-13] MEDS: ACETAMINOPHEN 325 MG TAB ONE (21:59)
[2024-12-13] MEDS: ACETAMINOPHEN 325 MG TAB PO PRN (21:59)
[2024-12-14] VITALS (31 sets, daily range): BP systolic 89–150; BP diastolic 42–94; PULSE 66–97; RESP 10–24; TEMP 98.3–98.9; O2SAT 82–100
[2024-12-14 00:47] LABS: EST GLOMERULAR FILTRATION RATE 23.0 ML/MIN (>=60)
[2024-12-14 06:27] LABS: BASOPHILS % 0.8 % (0.0-1.0); EOSINOPHILS % 4.6 % (0.0-6.0); LYMPHOCYTES % 28.3 % (18.0-39.1); MONOCYTES % 18.1 % (4.4-11.3); NEUTROPHILS % 48.2 % (38.7-80.0); RED CELL DISTRIBUTION WIDTH 14.1 % (11.7-14.4)
[2024-12-14 07:02] LABS: EST GLOMERULAR FILTRATION RATE 25.0 ML/MIN (>=60)
[2024-12-14] MEDS ORDERED: LIDOCAINE HCL 2% LOCAL INJ 5 ML SDV VIAL INJ ONE (10:16)
[2024-12-14] MEDS ORDERED: PROPOFOL IV EMULSION 10 MG/ML 20 ML VIAL ONE (10:16)
[2024-12-14] MEDS ORDERED: FENTANYL CITRATE/PF 100MCG/2 ML INJ ONE (10:17)
[2024-12-14] MEDS ORDERED: ROCURONIUM BROMIDE 1 ML IV ONE (10:17)
[2024-12-14] MEDS ORDERED: ONDANSETRON HCL INJ 2MG/ML 2ML 2 MG/ML VIAL ONE (10:48)
[2024-12-14] MEDS ORDERED: METOCLOPRAMIDE HCL 10 MG/2ML VIAL ONE (10:48)
[2024-12-14] MEDS ORDERED: PHENYLEPHRINE HCL 1% 10 MG/ML VIAL ONE (10:59)
[2024-12-14] MEDS ORDERED: ACETAMINOPHEN 1000 MG/100 ML 100 ML IV ONE (11:06)
[2024-12-14] MEDS ORDERED: SUGAMMADEX SODIUM 200 MG/2 ML VIAL IV ONE (11:06)
[2024-12-14] MEDS ORDERED: ONDANSETRON HCL INJ 2MG/ML 2ML 2 MG/ML VIAL IV PRN (11:45)
[2024-12-14] MEDS ORDERED: HYDROMORPHONE 1MG/1ML INJ IV PRN (11:45)
[2024-12-14] MEDS ORDERED: HYDROCODONE/APAP 7.5MG-325MG 1 EA TAB PO PRN (11:45)
[2024-12-14] MEDS: SODIUM BICARBONATE 8.4% VIAL 50 ML in SODIUM CHLORIDE 0.45% 1,000 ML IV SCH (18:26)
[2024-12-15] VITALS (45 sets, daily range): BP systolic 78–160; BP diastolic 45–105; PULSE 74–88; RESP 13–28; TEMP 97.9–98.7; O2SAT 94–100
[2024-12-15 05:27] LABS: BASOPHILS % 0.5 % (0.0-1.0); EOSINOPHILS % 4.5 % (0.0-6.0); LYMPHOCYTES % 25.4 % (18.0-39.1); MONOCYTES % 15.1 % (4.4-11.3); NEUTROPHILS % 54.3 % (38.7-80.0); RED CELL DISTRIBUTION WIDTH 14.1 % (11.7-14.4)
[2024-12-15 05:40] LABS: EST GLOMERULAR FILTRATION RATE 24.0 ML/MIN (>=60)
[2024-12-15] MEDS: SOD POLYSTYRENE SULFONATE SUSP 15 GM/60 ML BTL PO ONE (16:35)
[2024-12-15] MEDS: LOPERAMIDE HCL 2 MG CAP PO PRN (16:35)
[2024-12-15] MEDS: FUROSEMIDE INJ 10 MG/ML 4 ML VIAL IV ONE (16:35)
[2024-12-15 19:14] LABS: % IRON SATURATION 13 % (15-50)
[2024-12-15] MEDS: SODIUM BICARBONATE 8.4% VIAL 50 ML in SODIUM CHLORIDE 0.45% 1,000 ML IV SCH (23:01)
[2024-12-16] VITALS (14 sets, daily range): BP systolic 100–147; BP diastolic 54–75; PULSE 70–84; RESP 16–19; TEMP 97.9–98.5; O2SAT 94–100
[2024-12-16 05:32] LABS: BASOPHILS % 0.5 % (0.0-1.0); EOSINOPHILS % 6.3 % (0.0-6.0); LYMPHOCYTES % 25.7 % (18.0-39.1); MONOCYTES % 13.2 % (4.4-11.3); NEUTROPHILS % 54.1 % (38.7-80.0); RED CELL DISTRIBUTION WIDTH 13.9 % (11.7-14.4)
[2024-12-16 06:02] LABS: EST GLOMERULAR FILTRATION RATE 23.0 ML/MIN (>=60)
[2024-12-16] MEDS ORDERED: MIDAZOLAM HCL 2 MG/2 ML VIAL ONE (09:08)
[2024-12-16] MEDS ORDERED: ONDANSETRON HCL INJ 2MG/ML 2ML 2 MG/ML VIAL ONE (09:08)
[2024-12-16] MEDS ORDERED: FENTANYL CITRATE/PF 100MCG/2 ML INJ ONE (09:08)
[2024-12-16] MEDS ORDERED: ROCURONIUM BROMIDE 1 ML IV ONE (09:08)
[2024-12-16] MEDS ORDERED: SUGAMMADEX SODIUM 200 MG/2 ML VIAL IV ONE ×2 (09:08→10:57)
[2024-12-16] MEDS ORDERED: LIDOCAINE HCL 2% LOCAL INJ 5 ML SDV VIAL INJ ONE (09:08)
[2024-12-16] MEDS ORDERED: PROPOFOL IV EMULSION 10 MG/ML 20 ML VIAL ONE (09:08)
[2024-12-16] MEDS ORDERED: EPHEDRINE SULFATE INJ 50 MG/ML VIAL ONE (10:41)
[2024-12-17] VITALS (9 sets, daily range): BP systolic 126–133; BP diastolic 59–67; PULSE 75–84; RESP 17–18; TEMP 98.1–98.8; O2SAT 95–100
[2024-12-17 07:13] LABS: EST GLOMERULAR FILTRATION RATE 30.0 ML/MIN (>=60)
[2024-12-17 09:56] LABS: BASOPHILS % 0.6 % (0.0-1.0); EOSINOPHILS % 5.7 % (0.0-6.0); LYMPHOCYTES % 23.1 % (18.0-39.1); MONOCYTES % 12.5 % (4.4-11.3); NEUTROPHILS % 57.5 % (38.7-80.0); RED CELL DISTRIBUTION WIDTH 14.1 % (11.7-14.4)
[2024-12-17 12:10] LABS: ABG BASE EXCESS -10.0 mmol/L (-2 - 3); ABG HCO3 16 mmol/L (22-26); ABG OXYGEN SATURATION 92.0 % (95-98); ABG PCO2 29 mmHg (35-45); ABG PH 7.34 (7.35-7.45); ABG PO2 65 mmHg (80-105); ABG TCO2 16
[2024-12-17] MEDS: SODIUM BICARBONATE 650 MG TAB PO SCH (17:28)
[2024-12-18] VITALS (7 sets, daily range): BP systolic 118–132; BP diastolic 57–68; PULSE 68–82; RESP 18–21; TEMP 97.6–98.4; O2SAT 97–100
[2024-12-18 07:17] LABS: EST GLOMERULAR FILTRATION RATE 31.0 ML/MIN (>=60)
[2024-12-18] MEDS: SODIUM FERRIC GLUCONATE COMPLX 125 MG in SODIUM CHLORIDE 0.9% 100 ML IV SCH (09:28)
[2024-12-19] VITALS (9 sets, daily range): BP systolic 118–162; BP diastolic 57–75; PULSE 65–76; RESP 16–21; TEMP 97.4–98.6; O2SAT 95–100
[2024-12-20] VITALS (10 sets, daily range): BP systolic 135–157; BP diastolic 67–77; PULSE 66–86; RESP 16–20; TEMP 98.1–98.5; O2SAT 96–100
[2024-12-20 06:21] LABS: BASOPHILS % 0.8 % (0.0-1.0); EOSINOPHILS % 9.5 % (0.0-6.0); LYMPHOCYTES % 29.4 % (18.0-39.1); MONOCYTES % 11.6 % (4.4-11.3); NEUTROPHILS % 47.3 % (38.7-80.0); RED CELL DISTRIBUTION WIDTH 13.9 % (11.7-14.4)
[2024-12-20 06:49] LABS: EST GLOMERULAR FILTRATION RATE 42.0 ML/MIN (>=60)
[2024-12-20] MEDS: EPOETIN ALFA-EPBX 10,000 UNIT/ML VIAL SC SCH (08:47)
[2024-12-21] VITALS (10 sets, daily range): BP systolic 128–161; BP diastolic 66–81; PULSE 67–74; RESP 16–18; TEMP 97.4–98.8; O2SAT 95–100
[2024-12-21] MEDS ORDERED: LIDOCAINE HCL 2% LOCAL INJ 5 ML SDV VIAL INJ ONE (12:41)
[2024-12-21] MEDS ORDERED: SEVOFLURANE INHAL SOLN 250 ML PEN BTL ONE (12:41)
[2024-12-21] MEDS ORDERED: PROPOFOL IV EMULSION 10 MG/ML 20 ML VIAL ONE (12:41)
[2024-12-21] MEDS ORDERED: FENTANYL CITRATE/PF 100MCG/2 ML INJ ONE (12:41)
[2024-12-21] MEDS ORDERED: FAMOTIDINE 20 MG/2 ML VIAL IV ONE (13:12)
[2024-12-21] MEDS ORDERED: ONDANSETRON HCL INJ 2MG/ML 2ML 2 MG/ML VIAL ONE (13:12)
[2024-12-22] VITALS (11 sets, daily range): BP systolic 99–158; BP diastolic 43–91; PULSE 70–88; RESP 18–20; TEMP 97.8–99.1; O2SAT 72–99
[2024-12-22 06:59] LABS: BASOPHILS % 0.5 % (0.0-1.0); EOSINOPHILS % 6.2 % (0.0-6.0); LYMPHOCYTES % 23.3 % (18.0-39.1); MONOCYTES % 8.8 % (4.4-11.3); NEUTROPHILS % 59.2 % (38.7-80.0); RED CELL DISTRIBUTION WIDTH 14.4 % (11.7-14.4)
[2024-12-22 08:22] LABS: EST GLOMERULAR FILTRATION RATE 36.0 ML/MIN (>=60)
[2024-12-22] MEDS: MAGNESIUM SULF 1GRAM/DEXTROSE 100 ML IV ONE (17:46)
[2024-12-22] MEDS: MAGNESIUM SULFATE 2GM/50ML 50 ML IV ONE (21:28)
[2024-12-23 03:01] VITALS: BP 146/60; PULSE 68; RESP 18; TEMP 98.2; O2SAT 99
[2024-12-23 06:28] VITALS: PULSE 72; RESP 21; O2SAT 95
[2024-12-23 06:29] VITALS: PULSE 72; RESP 21; O2SAT 95
[2024-12-23 06:48] LABS: EST GLOMERULAR FILTRATION RATE 29.0 ML/MIN (>=60)
[2024-12-23 09:16] VITALS: BP 153/72; PULSE 66; RESP 19; TEMP 97.5; O2SAT 96
[2024-12-23 12:49] VITALS: BP 153/72; PULSE 66; RESP 19; TEMP 97.5; O2SAT 96
[2024-12-23 13:02] VITALS: BP 158/73; PULSE 86; RESP 18; TEMP 98; O2SAT 98
== END 2024-12-23 15:48 | disposition home or self-care (01) | DRG 857 ==
LOC: ER 16:36 → ERHOLD 18:41 → ICU 21:04 → MED/SURG3 12-16 14:01
PROVIDERS: ADMIT Internal Medicine; ATTEND Internal Medicine
PROC: 4A033B1 Measurement of Arterial Pressure, Peripheral, Percutaneous Approach (ICD-10-PCS; 2024-12-13)
PROC: 0KBL0ZZ Excision of Left Abdomen Muscle, Open Approach (ICD-10-PCS; 2024-12-14)
PROC: 0KBK0ZZ Excision of Right Abdomen Muscle, Open Approach (ICD-10-PCS; principal; 2024-12-14 09:00)
PROC: 0JB80ZZ Excision of Abdomen Subcutaneous Tissue and Fascia, Open Approach (ICD-10-PCS; 2024-12-16)
PROC: 0JB80ZZ Excision of Abdomen Subcutaneous Tissue and Fascia, Open Approach (ICD-10-PCS; 2024-12-21)
DX: T81.43XA Infection following a procedure, organ and space surgical site, initial encounter (principal); E87.20 Acidosis, unspecified; T81.321A Disruption or dehiscence of closure of internal operation (surgical) wound of abdominal wall muscle or fascia, initial encounter; L03.311 Cellulitis of abdominal wall; N17.9 Acute kidney failure, unspecified; N18.4 Chronic kidney disease, stage 4 (severe); I96 Gangrene, not elsewhere classified; M96.842 Postprocedural seroma of a musculoskeletal structure following a musculoskeletal system procedure; Z68.42 Body mass index [BMI] 45.0-49.9, adult; E87.5 Hyperkalemia; E11.22 Type 2 diabetes mellitus with diabetic chronic kidney disease; I12.9 Hypertensive chronic kidney disease with stage 1 through stage 4 chronic kidney disease, or unspecified chronic kidney disease; K21.9 Gastro-esophageal reflux disease without esophagitis; E78.5 Hyperlipidemia, unspecified; M54.30 Sciatica, unspecified side; M19.90 Unspecified osteoarthritis, unspecified site; E66.01 Morbid (severe) obesity due to excess calories; D50.9 Iron deficiency anemia, unspecified; E83.42 Hypomagnesemia; Z79.84 Long term (current) use of oral hypoglycemic drugs; Z79.4 Long term (current) use of insulin; Z85.038 Personal history of other malignant neoplasm of large intestine; Z85.528 Personal history of other malignant neoplasm of kidney; Z88.1 Allergy status to other antibiotic agents; Z87.440 Personal history of urinary (tract) infections; Z90.5 Acquired absence of kidney
CPT/HCPCS: 36415; 36600; 71045; 80048; 80053; 82550; 82805; 82948; 83540; 83605; 83735; 84466; 84484; 85014; 85018; 85025; 85610; 85730; 87040; 87071; 87075; 87186; 87205; 93005; 94799; 97606; 99252; 99284; J1308; J1938; J2003; J2185; J2250; J2270; J2371; J2405; J2470; J2765; J2916; J3475; J7030; J7040; J7050